=== PATIENT | female | born 1990 | race Caucasian/White ===

== ENCOUNTER 2018-04-27 22:18 | Emergency (ER) | END 2018-04-28 00:54 | disposition home or self-care (01) ==

== ENCOUNTER 2018-10-25 15:05 | Emergency (ER) | payer OTHER ==
[~2018-10-25] VITALS: Ht 157.5 cm; Wt 56.7 kg
[~2018-10-25 15:05] MED LIST: IBUP-1542 PO; IRON45TA2 PO; ONDA4TAB14 PO; PREN1TAB17 PO
[2018-10-25 15:07] VITALS: BP 126/74; PULSE 98; RESP 16; Ht 157.5 cm; Wt 56.7 kg
--- NOTE | 2018-10-25 16:55 | ERD ---
ER Documentation Chief Complaint Chief Complaint nausea , dizziness x 3 weeks , with abd cramping HPI 28-year-old G2, P2 female with no reported past medical surgical history presents with 3-week complaint of nausea, intermittent dizziness, and lower abdominal cramping. Describes vague intermittent lower pelvic fullness type discomfort. Last menstrual period was about 2 weeks ago. Patient states she has been having unprotected sex with boyfriend and requests STD check at this time. She reports urinary frequency but denies any vaginal bleeding or discharge. Has had an intermittent headache but currently headache free. She otherwise denies fevers, chills, chest pain, shortness of breath, dyspnea, vomiting. She otherwise without complaint. ROS All systems reviewed and are negative except as per history of present illness. Medications Home Meds Active Scripts Ondansetron (Ondansetron Odt) 4 Mg Tab.rapdis, 4 MG PO Q6H PRN for NAUSEA AND/OR VOMITING, #10 TAB Prov:CARMEN MONTERO PA-C 10/25/18 Ibuprofen* (Motrin*) 600 Mg Tab, 600 MG PO Q6, #30 TAB Prov:YAEL ROY PA-C 04/28/18 Ondansetron (Ondansetron Odt) 4 Mg Tab.rapdis, 4 MG PO Q6H PRN for NAUSEA AND/OR VOMITING, #10 TAB Prov:YAEL ROY PA-C 04/28/18 Reported Medications Iron,Carbonyl (IRON) 45 Mg Tablet, 45 MG PO DAILY 01/06/13 Vit-Iron Fumarate-FA ( Tablet) 1 Each Tablet, 1 EACH PO DAILY 01/06/13 Allergies Allergies: Coded Allergies: No Known Allergy (Verified , 02/11/11) PMhx/Soc History of Surgery: No Anesthesia Reaction: No Hx Neurological Disorder: No Hx Respiratory Disorders: No Hx Cardiac Disorders: No Hx Psychiatric Problems: No Hx Miscellaneous Medical Probl: No Hx Alcohol Use: Yes (occassionally) Hx Substance Use: No Hx Tobacco Use: No Smoking Status: Never smoker FmHx Family History: No diabetes, No coronary disease, No other Physical Exam Vitals Vital Signs Date Temp Pulse Resp B/P (MAP) Pulse Ox O2 O2 Flow FiO2 Time Delivery Rate 10/25/18 98.5 98 16 126/74 100 15:07 (91) Physical Exam I have reviewed the triage vital signs. Const: Well nourished, well developed, appears stated age Eyes: PERRL, no conjunctival injection HENT: NCAT, Neck supple without meningismus CV: RRR, Warm, well-perfused extremities RESP: CTAB, Unlabored respiratory effort GI: soft, non-tender, non-distended, no masses MSK: No gross deformities appreciated Skin: Warm, dry. No rashes Neuro: grossly non focal Psych: Appropriate mood and affect. Results 24 hrs Laboratory Tests Test 10/25/18 16:31 10/25/18 16:33 Urine Color STRAW Urine Clarity CLEAR Urine pH 7.0 Urine Specific Momence 1.012 Urine Ketones NEGATIVE mg/dL Urine Nitrite NEGATIVE mg/dL Urine Bilirubin NEGATIVE mg/dL Urine Urobilinogen NEGATIVE mg/dL Urine Leukocyte Esterase NEGATIVE Damion/ul Urine Hemoglobin NEGATIVE mg/dL Urine Glucose NEGATIVE mg/dL Urine Total Protein NEGATIVE mg/dl POC Beta HCG, Qualitative NEGATIVE Procedures/MDM 28-year-old healthy female who presents with complaint of abdominal cramping and intermittent nausea. Requesting STD check as she has had unprotected sex recently. I have low suspicion for abdominal pelvic process requiring emergent work-up or care as she has a benign abdominal exam. Denies vaginal bleeding or vaginal discharge. ED course: UA unremarkable Urine POC negative Urine gonorrhea and chlamydia sent patient to follow-up results DISPOSITION PLAN: We discussed follow up with the patient's primary care doctor within 24 to 48 hours. Patient counseled regarding my diagnostic impression and care plan. Prior to discharge all questions answered. Pt agrees with treatment plan and unders tands strict return precautions. Precautionary instructions provided including instructions to return to the ER if not improving or for any worsening or changing symptoms or concerns. Disclaimer: Inadvertent spelling and grammatical errors are likely due to EHR/dictation software use and do not reflect on the overall quality of patient care. Also, please note that the electronic time recorded on this note does not necessarily reflect the actual time of the patient encounter. Departure Diagnosis: Primary Impression: Concern about STD in female without diagnosis Condition: Stable Patient Instructions: Nausea Referrals: COMMUNITY CLINICS YOU HAVE RECEIVED A MEDICAL SCREENING EXAM AND THE RESULTS INDICATE THAT YOU DO NOT HAVE A CONDITION THAT REQUIRES URGENT TREATMENT IN THE EMERGENCY DEPARTMENT. FURTHER EVALUATION AND TREATMENT OF YOUR CONDITION CAN WAIT UNTIL YOU ARE SEEN IN YOUR DOCTORS OFFICE WITHIN THE NEXT 1-2 DAYS. IT IS YOUR RESPONSIBILITY TO MAKE AN APPOINTMENT FOR FOLOW-UP CARE. IF YOU HAVE A PRIMARY DOCTOR --you should call your primary doctor and schedule an appointment IF YOU DO NOT HAVE A PRIMARY DOCTOR YOU CAN CALL OUR PHYSICIAN REFERRAL HOTLINE AT IF YOU CAN NOT AFFORD TO SEE A PHYSICIAN YOU CAN CHOSE FROM THE FOLLOWING [facility] [address] [facility] [address] [facility]. [facility] [address] [facility] [address] [facility]. [facility] [address] [facility]. [facility]. [address] Additional Instructions: Call your primary care doctor TOMORROW for an appointment during the next 2-3 days.See the doctor sooner or return here if your condition worsens before your appointment time. CARMEN MONTERO PA-C October 25, 2018 16:55
[2018-10-25] MEDS ORDERED: ONDA4TAB14 PO (17:42)
== END 2018-10-25 17:51 | disposition home or self-care (01) ==
LOC: FTE 15:05
DX: R10.9 Unspecified abdominal pain (principal); R11.0 Nausea; Z20.2 Contact with and (suspected) exposure to infections with a predominantly sexual mode of transmission
CPT/HCPCS: 81003; 81025; 87591; Z7502; 99283